=== PATIENT | male | born 2000 | race Hispanic/Latino ===

== ENCOUNTER 2023-09-14 02:18 | Emergency (ER) | payer OTHER ==
[~2023-09-14] VITALS: Ht 172.7 cm; Wt 78.9 kg
[2023-09-14 02:22] VITALS: BP 122/74; PULSE 88; RESP 16
[2023-09-14] MEDS: DEXAMETHASONE SOD PHOSPHATE 4 MG/ML 1ML VIAL IM STA (04:55)
[2023-09-14] MEDS: KETOROLAC 60 MG VIAL (30MG/ML) IM ONE (04:56)
[2023-09-14 05:04] LABS: RAPID GROUP A STREP negative (NEGATIVE)
[2023-09-14 05:10] LABS: SARS-CoV-2, RNA, NAAT NEGATIVE SARS CoV-2 (NEGATIVE)
[2023-09-14 05:12] LABS: INFLUENZA TYPE A NEGATIVE FOR TYPE A (NEG); INFLUENZA TYPE B NEGATIVE FOR TYPE B (NEG)
[2023-09-14] MEDS ORDERED: LORA10TA7 PO (05:20)
[2023-09-14] MEDS ORDERED: AMOX1TAB16 PO (05:20)
[2023-09-14] MEDS ORDERED: FLUT16H NASAL (05:20)
== END 2023-09-14 05:33 | disposition home or self-care (01) ==
LOC: EDH 02:18
DX: J32.9 Chronic sinusitis, unspecified (principal); Z20.822 Contact with and (suspected) exposure to COVID-19
CPT/HCPCS: 99284; 87635; 87880; 87804 ×2; 96372 ×2; J1100; J1885